=== PATIENT | male | born 1970 | race Caucasian/White ===

== ENCOUNTER → 2024-02-17 | Outpatient (CLI) | payer BC ==
[2024-02-17 15:14] LABS: Blood Urea Nitrogen 15.1 mg/dL (9.0-27.0); Chloride 105 mmol/L (96-109); Potassium 4.6 mmol/L (3.5-5.5); Sodium 141 mmol/L (135-145)
[2024-02-17 15:26] LABS: HCT 46.3 % (39.6-50.0); HGB 15.1 g/dL (13.0-17.0); MCH 29.9 pg (27.0-32.0); MCHC 32.6 g/dL (32.0-37.0); MCV 91.7 FL (80.0-97.0); Mean Platelet Volume 11.1 FL (9.5-12.2); NRBC Per 100 WBC 0 X 10*3/uL (0.00-0.01); Platelet Count 356 X 10*3/uL (140-440); RBC 5.05 X 10*6/uL (4.40-5.60); RDW 13.4 % (11.5-14.5); WBC 12.35 X 10*3/uL (4.50-10.00)
== END | disposition home or self-care (01) ==
LOC: LABPAT 11:29
PROVIDERS: ATTEND Internal Medicine
DX: Z01.812 Encounter for preprocedural laboratory examination (principal); R07.9 Chest pain, unspecified
CPT/HCPCS: 36415; 80051; 82565; 84520; 85027

== ENCOUNTER 2024-03-01 12:01 | Day surgery (SDC) | payer BC ==
[2024-02-22 12:03] VITALS: BMI 38.2
[~2024-03-01 12:01] MED LIST: ALPRAZolam 0.25 MG TAB PO PRN; ALPRAZolam 0.5 MG TAB PO PRN; ASPIRIN 325 MG TAB PO STA; ATORVASTATIN 80 MG TAB PO STA; HEPARIN SODIUM,PORCINE (1 ML) 2,500 UNIT in SODIUM CHLORIDE 0.9% 250 ML IRRIGATION PRN; HEPARIN SODIUM,PORCINE 10,000 UNIT in SODIUM CHLORIDE 0.9% 1,000 ML IRRIGATION PRN; NITROGLYCERIN SL TABS 0.4 MG TAB SUBLINGUAL PRN
[2024-03-01] MEDS: SODIUM CHLORIDE 0.9% 1,000 ML in EMPTY BAG 1 BAG IV SCH (12:16)
[2024-03-01 12:17] VITALS: RESP 18; TEMP 98.4
[2024-03-01] MEDS: IV FLUID CONTINUATION 1,000 ML IV ONE (12:17)
[2024-03-01] MEDS: HEPARIN SODIUM (1,000 UNIT/ML) 1,000 UNIT in SODIUM CHLORIDE 0.9% 1,000 ML IRRIGATION ONE (13:27)
[2024-03-01] MEDS: HEPARIN SODIUM,PORCINE (1 ML) 2,500 UNIT in SODIUM CHLORIDE 0.9% 250 ML IRRIGATION ONE (13:27)
[2024-03-01] MEDS: fentaNYL (PF) 50 MCG/ML 2 ML AMP IVP ONE ×2 (13:30→13:35)
[2024-03-01] MEDS: MIDAZOLAM 2 MG/2 ML VIAL IVP ONE ×2 (13:30→13:35)
[2024-03-01] MEDS: LIDOCAINE 1% INJ 10MG/ML (20 ML MDV) SQ ONE (13:30)
[2024-03-01] MEDS: VERAPAMIL SYRINGE (5 MG/10 ML) INTRAARTER ONE ×2 (13:33→13:37)
[2024-03-01] MEDS: HEPARIN SODIUM 1,000 UN/ML (10ML VL) IVP ONE (13:35)
[2024-03-01] MEDS: IOPAMIDOL-370 100ML BTL INJ ONE (13:42)
[2024-03-01 16:06] VITALS: BP 164/71; PULSE 66
--- NOTE | 2024-03-01 16:49 | P.CARDCATH ---
Description of Procedure: PROCEDURES PERFORMED: Left heart catheterization, bilateral coronary angiography, ultrasound guided arterial access INDICATION: Unstable angina CONSENT:I have discussed the risks, benefits and alternative therapies for the above-mentioned procedure and for both sedation/analgesia as well as necessary blood product administration, if indicated, as they pertain to this patient. The patient has indicated understanding and acceptance of the risks and procedures discussed. PROCEDURE: After the risks, benefits and alternatives of the above mentioned procedure explained in detail with the patient, informed consent was obtained. Patient was taken to the catheterization lab and prepped and draped in usual fashion. Ultrasound guidance was used to assess for arterial access. 1% lidocaine was used to anesthetize the right radial artery. A 6-Mexican sheath was placed in the right radial artery using modified Seldinger technique and ultrasound guidance. Left coronary angiography was performed with a 5-Mexican JL 3.5 catheter and right coronary angiography was performed with a 5-Mexican FR5 catheter in various views. A 5-Mexican FR5 catheter was inserted into the left ventricle and pressure measurements were obtained. The right radial sheath was removed and a TR band was placed with hemostasis achieved. The patient tolerat ed the procedure well. Patient was transported back to the post catheterization holding area in stable condition. Conscious Sedation: Patient was monitored under the direct supervision of myself for conscious sedation using Versed and fentanyl for a total duration of 11 minutes HEMODYNAMICS: aorta: 147/72 LV: 141/88, with EDP 22 SELECTIVE CORONARY ARTERIOGRAPHY: LEFT MAIN: The left main is a large caliber vessel which trifurcates into the LAD, ramus and circumflex. There is no significant stenosis. LEFT ANTERIOR DESCENDING CORONARY ARTERY: LAD is a large caliber vessel which wraps around to the apex. There is mild 10-20% stenosis after a moderate caliber diagonal 1 branch. Otherwise there are mild luminal irregularities of the distal LAD. RAMUS INTERMEDIUS: The ramus is a small caliber vessel without significant stenosis. LEFT CIRCUMFLEX CORONARY ARTERY: Left circumflex is a moderate caliber vessel without significant stenosis. RIGHT CORONARY ARTERY: The right coronary artery is a large caliber vessel which gives off a PDA and PLV branch and is the dominant vessel. There are mild luminal irregularities FINAL IMPRESSION: 1. Relatively normal coronary arteries as described above other than mid LAD 10-20% stenosis and distal LAD, RCA mild luminal irregularities. 2. Elevated left sided filling pressures PLAN: 1. Aggressive risk factor modification per most recent ACC/AHA guidelines. 2. Follow-up in the office in 1-2 weeks.
== END 2024-03-01 16:49 | disposition home or self-care (01) ==
LOC: CATHCVL 12:01
PROVIDERS: ATTEND Internal Medicine
DX: I25.110 Atherosclerotic heart disease of native coronary artery with unstable angina pectoris (principal); E78.2 Mixed hyperlipidemia; F41.0 Panic disorder [episodic paroxysmal anxiety]; Z79.899 Other long term (current) drug therapy; Z82.49 Family history of ischemic heart disease and other diseases of the circulatory system
CPT/HCPCS: 93458; C1769; C1894; J2250; J1644 ×2; J2003; J3010; Q9967